=== PATIENT | female | born 1965 | race Caucasian/White ===

== ENCOUNTER 2016-06-28 02:26 | Inpatient (IN) | payer MEDICAID ==
[~2016-06-28] VITALS: Ht 157.5 cm; Wt 131.1 kg
[~2016-06-28 02:26] MED LIST: IBUP200C11; MEDR10TA2
[2016-06-28] MEDS ORDERED: SOD CHLORIDE 0.9% 500 ML IV STA (03:00)
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
[2016-06-28 03:36] LABS: ADD SCAN DIFF NO
[2016-06-28 03:39] LABS: ADD UMIC NO; URINE BILIRUBIN (Dip) NEGATIVE (NEGATIVE); URINE BLOOD (Dip) NEGATIVE (NEGATIVE); URINE COLOR LT. YELLOW (YELLOW); URINE GLUCOSE (Dip) NEGATIVE (NEGATIVE); URINE KETONES (Dip) NEGATIVE (NEGATIVE); URINE LEUKOCYTE ESTERASE (Dip) NEGATIVE (NEGATIVE); URINE NITRITE (Dip) NEGATIVE (NEGATIVE); URINE TOTAL PROTEIN (Dip) NEGATIVE (NEGATIVE); URINE UROBILINOGEN (Dip) 0.2 E.U./dL (0.1-1.0)
[2016-06-28 03:44] LABS: BASOPHIL # 0.1 10^3/ul (0.0-0.1); BASOPHILS % 0.5 % (0.0-2.0); EOSINOPHILS # 0.3 10^3/ul (0.0-0.5); EOSINOPHILS % 2.6 % (0.0-7.0); HEMATOCRIT 41.4 % (37.0-47.0); HEMOGLOBIN 13.6 g/dl (12.0-16.0); LYMPHOCYTES # 2.2 10^3/ul (0.8-2.9); LYMPHOCYTES % 20.2 % (15.0-51.0); MEAN CORPUSCULAR HEMOGLOBIN 27.4 pg (29.0-33.0); MEAN CORPUSCULAR HGB CONC 32.9 g/dl (32.0-37.0); MEAN CORPUSCULAR VOLUME 83.3 fl (82.0-101.0); MEAN PLATELET VOLUME 9.9 fl (7.4-10.4); MONOCYTE # 0.7 10^3/ul (0.3-0.9); MONOCYTES % 6.5 % (0.0-11.0); NEUTROPHIL # 7.6 10^3/ul (1.6-7.5); NEUTROPHILS % 69.7 % (39.0-77.0); PLATELET COUNT 346 10^3/UL (140-415); RED BLOOD COUNT 4.97 10^6/ul (4.20-5.40); RED CELL DISTRIBUTION WIDTH 13.5 % (11.5-14.5); WHITE BLOOD COUNT 10.9 10^3/ul (4.8-10.8)
[2016-06-28 03:53] LABS: INR 0.94; PROTIME 12.6 Sec (12.2-14.2)
[2016-06-28 03:54] LABS: ALBUMIN 4.1 g/dl (3.3-4.9); CHLORIDE 104 mmol/L (97-110); PARTIAL THROMBOPLASTIN TIME 26.3 Sec (25.0-35.0); SODIUM 142 mmol/L (135-144)
[2016-06-28 03:55] LABS: POTASSIUM 3.8 mmol/L (3.5-5.1)
[2016-06-28 03:57] LABS: ALANINE AMINOTRANSFERASE 25 IU/L (13-69); ALBUMIN/GLOBULIN RATIO 1.05; ALKALINE PHOSPHATASE 129 IU/L (42-121); ANION GAP 15 (8-16); ASPARTATE AMINO TRANSFERASE 24 IU/L (15-46); BILIRUBIN,INDIRECT 0.2 mg/dl (0-1.1); BILIRUBIN,TOTAL 0.2 mg/dl (0.2-1.3); BLOOD UREA NITROGEN 14 mg/dl (7-20); CARBON DIOXIDE 27 mmol/L (21-31); GLUCOSE 121 mg/dl (70-220)
[2016-06-28 03:58] LABS: CALCIUM 9.9 mg/dl (8.4-10.2)
[2016-06-28 03:59] LABS: BARBITURATES Negative (NEGATIVE); BENZODIAZEPINES Negative (NEGATIVE); CANNABINOIDS Negative (NEGATIVE); COCAINE Negative (NEGATIVE); OPIATES Negative (NEGATIVE)
[2016-06-28 03:59] LABS: ETHANOL < 10.0 mg/dl
[2016-06-28 04:09] LABS: TROPONIN-I 0.012 ng/ml (0.00-0.12)
[2016-06-28 04:42] LABS: T3 UPTAKE 26.4 % (23.5-40.5)
--- NOTE | 2016-06-28 04:43 | RADRPT ---
PROCEDURE: CHEST - 1 VIEW CLINICAL INDICATION: 50-year-old female with altered mental status. TECHNIQUE: A single frontal AP upright portable view of the chest was performed. The images were reviewed on a PACS workstation. COMPARISON: Chest x-ray May 01, 2014; CTA chest October 27, 2008. FINDINGS: The radiograph is mildly rotated. The cardiomediastinal silhouette is within normal limits. There is a shallow inspiration. There is mild bibasilar subsegmental atelectasis. There is no evidence f or an infiltrate. There is no evidence for congestive heart failure. There is no evidence for pneum othorax. Mild degenerative changes are seen within the spine. IMPRESSION: 1. Rotated radiograph. 2. Shallow inspiration. 3. Mild bibasilar subsegmental atelectasis. 4. Degenerative changes within the spine. .Reza Up MD, Date Time Electronically viewed and signed by .Reza Up MD, on 06/28/2016 04:43 .M/
--- NOTE | 2016-06-28 05:02 | RADRPT ---
PROCEDURE: CT BRAIN WITHOUT CONTRAST CLINICAL INDICATION: 50-year-old female with altered mental status. TECHNIQUE: The study was performed utilizing a [employer] VCT 64-slice CT scanner. Direct axia l sections were obtained from the foramen magnum to the vertex without the use of intravenous contra st material. Sagittal and coronal reformations were obtained. One or more the following dose reduct ion techniques were utilized: automated exposure control, adjustment of the mA and/or kV according t o patient's size or use of iterative reconstruction technique. The images were viewed on a PACS Mevio. CTD/vol = 43.7 mGy; Total Exam DLP = 720.2 mGy-cm. COMPARISON: None. FINDINGS: The ventricles have a normal size, shape and position. There is no evidence for mass effect or midl ine shift. There are no intracranial areas of abnormal attenuation. There is no evidence for acute intra or extra-axial blood. The bony calvarium is intact. There is marked mucosal thickening and op acification of the right ethmoid air cells, left posterior ethmoid air cells and bilateral sphenoid sinuses there is moderate mucosal thickening within the rest of the paranasal sinuses with small air -fluid level within the dependent portion of the right maxillary sinus. The ostiomeatal units are ob structed bilaterally. The mastoid air cells are without significant soft tissue. IMPRESSION: 1. The intracranial contents are unremarkable on this noncontrast CT scan of the brain. 2. Rfpdjaso-mx-chtzrw paranasal sinus disease. .Reza Up MD, MD Date Time Electronically viewed and signed by .Reza Up MD, on 06/28/2016 05:02 .Artie
[2016-06-28] MEDS ORDERED: ONDANSETRON 4 MG INJ IV PRN ×2 (05:30→09:00)
[2016-06-28] MEDS ORDERED: ACETAMINOPHEN 325 MG TAB PO PRN (05:30)
[2016-06-28] MEDS ORDERED: ASPIRIN 81 MG TAB PO ONE (05:30)
[2016-06-28] MEDS ORDERED: ALBUTEROL/IPRATROPIUM (NEB) 3 ML AMP HHN PRN (09:00)
[2016-06-28] MEDS ORDERED: LORAZEPAM 2 MG INJ IV PRN (09:00)
[2016-06-28] MEDS ORDERED: NACL 0.9% 3 ML SYG IV SCH (09:00)
[2016-06-28] MEDS ORDERED: morphine 2 MG INJ IV PRN (09:00)
--- NOTE | 2016-06-28 09:54 | HP ---
Date/Time of Note Date/Time of Note DATE: 06/28/16 TIME: 09:40 Assessment/Plan VTE Prophylaxis VTE Prophylaxis Intervention: heparin, LMWH Assessment/Plan Assessment/Plan IMPRESSION 1. Rule-out Stroke 2. HTN 3. Hx of Asthma 4. Depression/Anxiety PLAN CT head neg, will obtain MRI of brain and carotid doppler u/s Neurology consult Adjust BP meds as needed. Cont Statin. DVT ppx with lovenox HPI/ROS Admit Date/Time Admit Date/Time Hx of Present Illness Patient is a 50 yo female with hx of HTN, asthma, depression/anxiety who presented with left sided numbness. Symptom started about 10 days ago. patient was also having difficulty with speech and ambulation. No facial droop, chest pain, SOB, f/c, seizure-like activity. Head CT in ER showed Itnbiwvy-cb-gnhvoa paranasal sinus disease, but was neg for infarct or bleeding. BP 175/80 with HR of 101. WBC 11 otherwise labs within acceptable range. Utox neg. . PMH/Family/Social Social History Smoking Status: Former smoker Exam/Review of Systems Vital Signs Vitals Vital Signs Date Time Temp Pulse Resp B/P Pulse Ox O2 Delivery O2 Flow Rate FiO2 06/28/16 08:10 77 12 135/96 96 Room Air 06/28/16 05:30 98.3 Exam Constitutional: other (no acute distress) Head: atraumatic, normocephalic Eyes: EOMI, PERRL Respiratory: clear to auscultation, normal air movement Cardiovascular: other (tachycardic with regular rhythm) Gastrointestinal: non-tender, soft Extremities: normal pulses Neurological: confused, nl strength Labs Result Diagram: 06/28/16 0320 06/28/16 0320 Medications Medications Current Medications Lorazepam (Ativan) 0.5 mg Q6H PRN IV ANXIETY; Start 06/28/16 at 09:00 Ondansetron HCl (Zofran Inj) 4 mg Q6H PRN IV NAUSEA AND/OR VOMITING; Start at 09:00 Aspirin (Aspirin) 81 mg DAILY PO ; Start 06/28/16 at 09:00 Acetaminophen (Tylenol Tab) 650 mg Q6H PRN PO PAIN LEVEL 1-3 OR FEVER; Start at 09:00 Morphine Sulfate (morphine) 2 mg Q4H PRN IV PAIN LEVEL 7-10; Start 06/28/16 at 09:00 Enoxaparin Sodium (Lovenox) 40 mg DAILY SC ; Start 06/28/16 at 09:00 Atorvastatin Calcium (Lipitor) 20 mg QHS PO ; Start 06/28/16 at 21:00 VICKY LYONS MD Jun 28, 2016 09:50
[2016-06-28] MEDS ORDERED: OMEP20CA16 PO (09:55)
[2016-06-28] MEDS: ASPIRIN 81 MG TAB PO SCH (10:04)
[2016-06-28] MEDS: ENOXAPARIN 40 MG/0.4 ML SYG SC SCH (10:04)
--- NOTE | 2016-06-28 10:36 | RADRPT ---
PROCEDURE: US Carotids. CLINICAL INDICATION: Left sided numbness. TIA. TECHNIQUE: Multiple sonographic of the carotid arteries were obtained utilizing sepulveda scale imaging . Color and Doppler imaging was performed. The images were reviewed on a PACS workstation. COMPARISON: No prior studies are available for comparison. FINDINGS: Location Right Left CCA 95 cm/sec 78 cm/sec Prox ICA 57 cm/sec 76 cm/sec Mid ICA 77 cm/sec 85 cm/sec Dist ICA 79 cm/sec 65 cm/sec ECA 78 cm/sec 85 cm/sec ICA/CCA 0.9 1.1 Antegrade flow is seen within the vertebral arteries bilaterally. No significant plaque is seen with in the carotid system bilaterally. No hemodynamically significant stenosis or occlusion is identifi ed. IMPRESSION: 1. No evidence for hemodynamically significant stenosis - validated velocity measurements with angio graphic measurements, velocity criteria are extrapolated from diameter data as defined by the Societ y of Radiologists in Ultrasound Consensus Conference Radiology 2003; 229;340-346. This study does i ndirectly reference the measurement of the distal ICA diameter as the denominator for stenosis measu rement. 2. Antegrade flow seen within the vertebral arteries bilaterally. SRU Consensus Conference Criteria for the Diagnosis of Carotid Artery Stenosis Degree of Stenosis, % ICA PSV, cm/sec Plaque Estimate, % ICA/CCA PSV Ratio Normal <125 None <2.0 <50 <125 <50 <2.0 50 69 125-230 >50 2.0-4.0 >70 but less than near occlusion >230 >50 <4.0 Near occlusion High, low, or undetectable Visible Variable Total occlusion Undetectable Visible, no detectable lumen Not applicable *Cartoid artery stenosis: sepulveda-scale and Doppler US diagnosis. Society of Radiologists in Ultrasound Consensus Conference. Radiology 2003; 229: 340-346 RPTAT: JJ .Adi Ovalle MD, Date Time Electronically viewed and signed by .Adi Ovalle MD, MD on 06/28/2016 10:36 .A/
--- NOTE | 2016-06-28 11:46 | RADRPT ---
PROCEDURE: MRI Brain without contrast. CLINICAL INDICATION: TIA, left-sided facial numbness, body weakness TECHNIQUE: Multiplanar MRI of the brain without contrast was performed on a 3.0 T scanner with the following sequences obtained: T1-weighted, T2-weighted/FLAIR, diffusion weighted (with ADC map), GR E. COMPARISON: CT brain 06/28/2016 FINDINGS: No acute/recent ischemic infarction or intracranial hemorrhage / blood degradation products are iden tified. No extra-axial fluid collection is seen. There is no mass effect. No midline shift is identified. The ventricles and sulci are within normal limits for size and configuration. The signal intensity is unremarkable throughout the cerebrum, brainstem, and cerebellum. Flow voids are identified in the proximal intracranial arteries and dural sinuses suggesting patency . There is moderate to severe right and moderate left maxillary sinus polypoid mucosal thickening with right maxillary sinus fluid level, complete right and posterior left ethmoid air cell opacification , bilateral sphenoid sinus opacification, complete right frontal sinus opacification. There is also partial right mastoid air cell opacification. IMPRESSION: 1. No evidence of acute intracranial pathology. 2. Unremarkable noncontrast MRI of the brain. 3. Paranasal and right mastoid disease described above. RPTAT: VV .Oren Zazueta MD, MD Date Time Electronically viewed and signed by .Oren Zazueta MD, MD on 06/28/2016 11:45 .O/
[2016-06-28] MEDS: ACETAMINOPHEN 325 MG TAB PO PRN ×2 (15:20→23:01)
[2016-06-28] MEDS ORDERED: ATORVASTATIN 20 MG TAB PO SCH (21:00)
[2016-06-28 21:02] VITALS: TEMP 98.3
[2016-06-28 21:30] VITALS: BP 140/77; RESP 20
[2016-06-28 22:26] VITALS: Ht 157.5 cm; Wt 131.1 kg
[2016-06-28 22:41] VITALS: PULSE 81
[2016-06-29] VITALS (7 sets, daily range): BP systolic 123–158; BP diastolic 60–72; PULSE 81–84; RESP 15–20
--- NOTE | 2016-06-29 00:09 | RADRPT ---
Echocardiogram Report Patient Name: WILEY AMBROCIO Gender: Female Date: 1965 Study Date: 28-Jun-2016 Continuous Improvement Consultant: ASHVIN JOINER Location: 10 Ref. Physician: VICKY LYONS Quality: Technically Difficult Study Procedures: Transthoracic echocardiogram with complete 2D, M-Mode, and doppler examination. Indications: Transient Ischemic Attack. 2D/M Mode Doppler Measurement Value Normal Ranges Measurement Value Normal Ranges LVIDd 2D 5.0 3.5 - 5.6 cm TALAT Vmax 2.7 cm2 LVIDs 2D 2.9 2.1 - 4.1 cm AV Peak Neil 1.8 m/sec FS 2D 42.3 % AV Peak PG 12.0 mmHg LVPWd 2D 1.0 0.6 - 1.1 cm LVOT Peak Neil 1.4 m/sec IVSd 2D 1.0 0.6 - 1.1 cm LVOT Peak PG 7.0 mmHg IVS/LVPW 2D 1.0 MV E Peak Neil 0.9 m/sec AoR Diam 2D 2.6 2.0 - 3.7 cm MV A Peak Neil 0.9 m/sec LA/Ao 2D 1 0 - 1 MV E/A 1.0 EDV 2D 122.0 cm3 MV Decel Time 204 msec ESV 2D 23.4 cm3 MV E/A 1.0 LA Dimen 2D 3.0 2.3 - 4.0 cm TR Peak Neil 2.3 m/sec LVOT Diam 2.1 cm TR Peak PG 21.0 mmHg LVOT Area 3.5 cm2 RVSP 24.0 mmHg Findings Left Ventricle: Normal left ventricular systolic function. Normal left ventricular cavity size. Mild concentric left ventricular hypertrophy. Ejection fraction is visually estimated at 60 %. Tissue Doppler/Mitral Doppler indices are consistent with impaired relaxation (Stage I diastolic dysfunction). Right Ventricle: Normal right ventricular size. Normal right ventricular systolic function. Left Atrium: The left atrium is normal in size. Right Atrium: The right atrium is normal in size. Mitral Valve: Mitral valve is not well visualized. Mild mitral valve regurgitation. Aortic Valve: Normal appearance of the aortic valve. No significant aortic stenosis or insufficiency. Tricuspid Valve: Normal appearance and function of the tricuspid valve with trace physiologic regurgitation. Normal right ventricular systolic pressure. Estimated peak PA systolic pressure 24 mmHg. Pulmonic Valve: Pulmonic valve not well visualized. Pericardium: Normal pericardium with no significant pericardial effusion. Aorta: Normal aortic root. IVC: Normal size and normal respiratory collapse consistent with normal right atrial pressure. Conclusions 1.Normal left ventricular systolic function. Normal left ventricular cavity size. Mild concentric left ventricular hypertrophy. Ejection fraction is visually estimated at 60 %. Tissue Doppler/Mitral Doppler indices are consistent with impaired relaxation (Stage I diastolic dysfunction). 2.Mitral valve is not well visualized. Mild mitral valve regurgitation. 3.Normal appearance and function of the tricuspid valve with trace physiologic regurgitation. Normal right ventricular systolic pressure. Estimated peak PA systolic pressure 24 mmHg. Electronically Signed By: Jose Carlos Her 29-Jun-2016 00:08:25 -0700 Patient Name: WILEY AMBROCIO Study Date: 28-Jun-2016 [id number]
[2016-06-29 07:17] LABS: ADD SCAN DIFF NO
[2016-06-29 07:20] LABS: BASOPHILS % 0.4 % (0.0-2.0); EOSINOPHILS # 0.4 10^3/ul (0.0-0.5); EOSINOPHILS % 4.5 % (0.0-7.0); HEMATOCRIT 42.5 % (37.0-47.0); HEMOGLOBIN 13.9 g/dl (12.0-16.0); LYMPHOCYTES # 2.4 10^3/ul (0.8-2.9); LYMPHOCYTES % 28.6 % (15.0-51.0); MEAN CORPUSCULAR HEMOGLOBIN 27.4 pg (29.0-33.0); MEAN CORPUSCULAR HGB CONC 32.7 g/dl (32.0-37.0); MEAN CORPUSCULAR VOLUME 83.8 fl (82.0-101.0); MONOCYTE # 0.5 10^3/ul (0.3-0.9); MONOCYTES % 6.5 % (0.0-11.0); NEUTROPHIL # 4.9 10^3/ul (1.6-7.5); NEUTROPHILS % 59.5 % (39.0-77.0); PLATELET COUNT 344 10^3/UL (140-415); RED BLOOD COUNT 5.07 10^6/ul (4.20-5.40); RED CELL DISTRIBUTION WIDTH 13.8 % (11.5-14.5); WHITE BLOOD COUNT 8.3 10^3/ul (4.8-10.8)
[2016-06-29 07:45] LABS: BILIRUBIN,INDIRECT 0.3 mg/dl (0-1.1); BILIRUBIN,TOTAL 0.3 mg/dl (0.2-1.3); CALCIUM 9.7 mg/dl (8.4-10.2); CREATININE 0.57 mg/dl (0.44-1.00); MAGNESIUM 2.1 mg/dl (1.7-2.5); TOTAL PROTEIN 7.7 g/dl (6.1-8.1)
[2016-06-29 07:46] LABS: ALBUMIN/GLOBULIN RATIO 1.08; CHOL/HDL RATIO 4.7 RATIO
[2016-06-29] MEDS: ASPIRIN 81 MG TAB PO SCH (08:19)
[2016-06-29] MEDS: ENOXAPARIN 40 MG/0.4 ML SYG SC SCH (08:25)
--- NOTE | 2016-06-29 11:05 | PDOCDIS ---
Discharge Instructions CONDITION Patient Condition: Stable HOME CARE INSTRUCTIONS: Special Diet: Cardiac ACTIVITY: Activity Restrictions: Slowly Increase Activity FOLLOW UP/APPOINTMENTS Appointments Please take your medications as prescribed, and see your doctor in the clinic in 1 week. LUIS E CORONEL Jun 29, 2016 11:05
--- NOTE | 2016-06-29 11:21 | DS ---
DATE OF ADMISSION: 06/28/2016 DATE OF DISCHARGE: 06/29/2016 HOSPITAL COURSE: This is a 50-year-old female originally admitted on 06/28/2016 and being discharge d home on 06/29/2016. The patient came in with left-sided numbness symptoms. She was admitted and ruled out for acute stroke versus TIA. Her MRI of the brain showed no evidence of any acute intracr anial pathology, it was an unremarkable exam. Head CT was also unremarkable as well, although there was some moderate to severe paranasal sinus disease. The patient had a carotid Doppler study perfo rmed as well that showed no evidence of any hemodynamically significant stenosis. She also had an e chocardiogram performed that showed ejection fraction of 60%, normal left ventricular systolic funct ion, normal left ventricular cavity size. There was some stage I diastolic dysfunction. Over the c ourse of her hospital stay, her numbness symptoms improved. She was able to ambulate and tolerate a p.o. diet. Her A1c was normal. Cholesterol levels within normal limits. Her troponins were negat crys x3. She will be discharged home today in improved condition. She will continue omeprazole 20 m g daily. She will need follow up with a primary care doctor in the clinic in the next 1 to 2 weeks. FINAL DIAGNOSES: 1. Left-sided numbness symptoms. Ruled out for acute stroke versus transient ischemic attack. 2. Essential hypertension. 3. History of asthma. 4. History of depression and anxiety. Time spent discharging patient 40 minutes. Dictated By: LUIS E LAM Conf#: [id number] DID#: [id number]
== END 2016-06-29 12:45 | disposition home or self-care (01) | DRG 93 ==
LOC: E/R 02:26 → TEL 05:03
PROVIDERS: ADMIT Internal Medicine; ATTEND Internal Medicine
DX: R20.2 Paresthesia of skin (principal); I10 Essential (primary) hypertension; F41.9 Anxiety disorder, unspecified; F32.9 Major depressive disorder, single episode, unspecified; J45.909 Unspecified asthma, uncomplicated; Z87.891 Personal history of nicotine dependence
CPT/HCPCS: 36415; 70450; 70551; 71010; 80053; 80061; 80306; 80307; 81003; 82962; 83036; 83735; 84436; 84479; 84484; 84703; 85025; 85610; 85730; 93005; 93306; 93880; 96372; J1650; J7040